=== PATIENT | female | born 1965 | race Caucasian/White ===

== ENCOUNTER 2018-01-22 05:33 | Day surgery (SDC) | payer OTHER ==
[2018-01-21 09:14] LABS: HEMATOCRIT 39.4 % (36.0-48.0); HEMOGLOBIN 12.9 g/dL (12-16); MCH 29.2 pg (26.0-34.0); MCHC 32.7 g/dL (31.0-37.0); MCV 89.1 fL (80.0-100.0); MEAN PLATELET VOLUME 9.7 fL (7.4-10.4); RBC 4.42 10x6/uL (4.00-5.40); RDW 15.7 % (11.5-14.5); WBC 7.1 10x3/uL (4.8-10.8)
--- NOTE | ~2018-01-22 | OP ---
PATIENT NAME: AROLDO MONAE MEDICAL RECORD: [id number] :67 LOCATION:[facility] ADMISSION DATE: SURGEON: SHANTA CLEMENTE MD DATE OF OPERATION: 01/22/2018 PREOPERATIVE DIAGNOSES: Impingement syndrome of the shoulder with biceps tendonitis, possible rotator cuff repair. POSTOPERATIVE DIAGNOSES: 1. Impingement syndrome. 2. Acromioclavicular arthritis. 3. Rotator cuff tear. 4. Biceps tendinitis. PROCEDURES: 1. Arthroscopic rotator cuff repair. 2. Arthroscopic biceps tenodesis. 3. Arthroscopic subacromial decompression, acromioplasty, and bursectomy. 4. Arthroscopic distal clavicle excision. SURGEON: Shanta Clemente MD ANESTHESIA: General. INTRAOPERATIVE COMPLICATIONS: None. SUMMARY OF PATHOLOGIC FINDINGS: Consistent with the preoperative diagnosis. The patient essentially had end-stage impingement consisting of biceps tendinitis, excoriation of the coracoacromial ligament, rotator cuff tear, and acromioclavicular arthropathy. OPERATIVE SUMMARY IN DETAIL: After obtaining the appropriate preoperative orthopedic surgery consent as well as anesthetic consultation, evaluation, and clearance, the patient was brought to the operating room and placed on the operating table in supine position. After adequate general laryngeal mask was administered, the patient was placed in a left lateral decubitus position. All pressure points were well padded to include down leg peroneal pad as well as axillary roll. She was held firmly to the operating table using the vacuum pack suction system. Right upper extremity and shoulder were placed in the Arthrex traction boom at 30 degrees of forward flexion, right upper extremity was prepped and draped in routine sterile fashion. It was placed in the Arthrex traction boom at 30 degrees of forward flexion, 30 degrees of abduction with 10 pounds of traction laterally. Arthroscopy was established in the glenohumeral joint from posterior portal. Anterior portal was established in the anterior safe interval. Diagnostic arthroscopy did reveal the above findings. A transarthroscopic rotator cuff tear portal was created. The biceps tendon was grasped at this point and it was tenotomized and saved for later tenotomy. With this out of the way, rotator cuff fibers were debrided that were seen to the nonviable for repair. Decortication was carried out across the supraspinatus tendinous footprint. At this time, attention was then turned to the subacromial space. While on subacromial space, [place] tissue ablation system was utilized to denude the undersurface of the acromion of all soft tissue elements and release the coracoacromial ligament. A 5-0 barrel bur was used to perform acromioplasty at the level of acromioclavicular joint. Through a separate anterior portal, distal clavicle was excised for 1 cm. Having completed this OPERATIVE REPORT [id number] AROLDO MONAE and already having identified the biceps tendon, a tugboat pilot hole for the Arthrex drill bit was put into place at the middle of the bicipital groove under direct arthroscopic visualization. At this point, the forked tip biceps tenodesis screw was utilized to tenodese this with good fit and fill. Having completed this, the patient's rotator cuff required a series of three 5-0 [place] for repair across the supraspinatus tendinous footprint. Having completed this, arthroscopy portals were closed in routine interrupted fashion using 4-0 Prolene. Sterile dressings were applied. The patient was awakened and taken to the recovery room in stable condition. All final needle and sponge counts were correct. TRANSINT:[id number] Voice Confirmation ID: [id number] DOCUMENT ID: [id number] BRYN SWEENEY, SHANTA LO at 1724 CC: [id number] DICTATION DATE: 02/09/18 1541 [employer] MANAGER: 02/10/18 0411 [facility] 01/22/18 [id number] [place] [address]
[~2018-01-22 05:33] MED LIST: ASCORBIC ACID500 MG PO; HYDROCODONE-APA1 TAB PO; PAXIL10 MG PO; PROZAC20 MG PO; VITAMIN B-12500 MCG PO
[2018-01-22 06:33] VITALS: BP 122/71; BMI 45.8
[2018-01-22 07:40] LABS: HCG SERUM NEGATIVE (NEGATIVE)
[2018-01-22] MEDS ORDERED: DILAUDID2 MG PO (09:02)
== END 2018-01-22 10:51 | disposition home or self-care (01) ==
LOC: D.OPS 05:33 → D.PAN 07:30 → D.OPS 10:51
PROVIDERS: Anesthesiology
DX: M75.41 Impingement syndrome of right shoulder (principal); M19.011 Primary osteoarthritis, right shoulder; M75.101 Unspecified rotator cuff tear or rupture of right shoulder, not specified as traumatic; M75.21 Bicipital tendinitis, right shoulder; Z01.812 Encounter for preprocedural laboratory examination